=== PATIENT | female | born 1975 | race African-American/Black ===

== ENCOUNTER → 2017-07-04 16:57 | Outpatient (CLI) | payer BC | END | disposition home or self-care (01) | LOC: D.MAMMO 14:00 | DX: Z12.31 Encounter for screening mammogram for malignant neoplasm of breast (principal) ==

== ENCOUNTER → 2017-09-08 09:00 | Outpatient (CLI) | payer BC | END | disposition home or self-care (01) | LOC: D.MAMMO 09:00 | DX: R92.8 Other abnormal and inconclusive findings on diagnostic imaging of breast (principal) ==

== ENCOUNTER → 2018-08-16 16:19 | Outpatient (CLI) | payer BC | END | disposition home or self-care (01) | LOC: D.MRI 16:19 | DX: M54.2 Cervicalgia (principal) ==

== ENCOUNTER 2018-12-24 08:00 | Outpatient (CLI) | payer BC | END 2018-12-24 09:00 | disposition home or self-care (01) | LOC: D.MAMMO 08:00 | PROVIDERS: ATTEND Family Medicine | DX: N63.31 Unspecified lump in axillary tail of the right breast (principal) ==

== ENCOUNTER 2020-04-03 18:37 | Outpatient (CLI) | payer OTHER | END 2020-04-03 23:59 | disposition home or self-care (01) | LOC: D.MAMMO 18:37 | PROVIDERS: ATTEND Family Medicine | DX: Z12.31 Encounter for screening mammogram for malignant neoplasm of breast (principal) ==